=== PATIENT | female | born 2000 | race Caucasian/White ===

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

== ENCOUNTER 2018-09-28 07:59 | Day surgery (SDC) | payer OTHER ==
[~2018-09-28] VITALS: Ht 167.6 cm; Wt 83.1 kg
[~2018-09-28 07:59] MED LIST: ASMA1AER3 INH; CIPRODEX OTIC SUSP 7.5ML As Ordered ONE; PROAAER10 INH; VENTAER INH
[2018-09-28 08:31] LABS: URINE PREG TEST NEGATIVE (NEGATIVE)
[2018-09-28] MEDS ORDERED: FLUT44IN INH (08:47)
[2018-09-28] MEDS ORDERED: LR 1,000 ML IV ONE (09:00)
[2018-09-28] MEDS ORDERED: fentaNYL 100 MCG/2 ML INJECTION (J3010) As Ordered ONE (09:57)
[2018-09-28] MEDS ORDERED: PROPOFOL 200 MG/20 ML VIAL As Ordered ONE (09:57)
[2018-09-28] MEDS ORDERED: dexameTHASONE 4 MG/ML 1ML VIAL (J1100) As Ordered ONE (09:57)
[2018-09-28] MEDS ORDERED: MIDAZOLAM INJ 2 MG/2 ML VIAL (J2250) As Ordered ONE (09:57)
[2018-09-28] MEDS ORDERED: LIDOCAINE 2% INJ 100 MG/5 ML SDV (FOR ANES.) As Ordered ONE (09:57)
[2018-09-28] MEDS ORDERED: ONDANSETRON 4MG/2ML VIAL (J2405) As Ordered ONE (09:57)
[2018-09-28] MEDS ORDERED: IBUPROFEN 800 MG TAB As Ordered ONE (10:31)
[2018-09-28] MEDS ORDERED: ONDANSETRON 4MG/2ML VIAL (J2405) IV PRN (10:45)
[2018-09-28] MEDS ORDERED: fentaNYL 100 MCG/2 ML INJECTION (J3010) IV PRN (10:45)
[2018-09-28] MEDS ORDERED: IBUPROFEN 800 MG TAB PO PRN (10:45)
[2018-09-28] MEDS ORDERED: LR 1,000 ML IV SCH (10:45)
[2018-09-28 11:15] VITALS: BP 101/69
--- NOTE | 2018-09-28 11:55 | RO ---
DATE OF PROCEDURE: 09/28/2018 PREPROCEDURE DIAGNOSIS: Chronic otitis media with effusion. POSTPROCEDURE DIAGNOSIS: Chronic otitis media with effusion. PROCEDURE: Bilateral myringotomy. SURGEON: Dr. Carroll Florentino. REEL WORKER: ANESTHESIA: ESTIMATED BLOOD LOSS: INDICATION: This is a 18-year-old with a long history of eustachian tube dysfunction, chronic middle ear fluid requiring ventilation of the middle ear in the past. DESCRIPTION OF PROCEDURE: Satisfactory mask anesthesia administered, right ear examined and cleaned under the microscope. There is some atrophy noted anteriorly. There is definite retraction of the tympanic membrane. No neovascularization is peripheral to the sclerosis. An anterior superior myringotomy made. Serous fluid suctioned from the middle ear. A Bevel Bobbin tube was inserted carefully. It does not extend the myringotomy. Ciprodex drops were instilled. The left ear was examined and cleaned under microscope. A peripheral rim of tympanosclerosis noted with a larger area of atrophy superiorly and anteriorly. Anterior superior myringotomy made. Glue like fluid suctioned from the middle ear with care being taken not to extend the myringotomy. Ciprodex drops used to irrigate the middle ear and a Bevel Bobbin tube inserted carefully. the lip was retracted away from the face by assist. 1% Xylocaine with 1:100,000 epinephrine was injected to the area around this cyst. An elliptical incision was made in the mucosa lip just around the lesion. Using sharp dissection, the paddle of mucosa with overlying cyst was removed with the underlying mucous gland that created this. Hemostasis was achieved with bipolar cautery. Mucous flaps were created on each side of the incision for mobilization of the wound. The wound was then closed using interrupted #4-0 Chromic suture. He tolerated the procedure well and was sent to recovery in satisfactory condition and he will be seen back in the office in 1 week.
== END 2018-09-28 11:25 | disposition home or self-care (01) ==
LOC: M SDC 07:59
PROVIDERS: ATTEND Specialist
DX: H65.23 Chronic serous otitis media, bilateral (principal); J45.909 Unspecified asthma, uncomplicated; K21.9 Gastro-esophageal reflux disease without esophagitis; L30.9 Dermatitis, unspecified; R06.83 Snoring; Z72.0 Tobacco use
CPT/HCPCS: 69436; 84703; J1100; J2250; J2405; J3010

== ENCOUNTER 2019-04-07 06:07 | Day surgery (SDC) | payer OTHER ==
[~2019-04-07] VITALS: Ht 167.6 cm; Wt 82.6 kg
[~2019-04-07 06:07] MED LIST changes: +ALBU83IN INH; -CIPRODEX OTIC SUSP 7.5ML As Ordered ONE; +CLAR10CA3 PO; +FLUT44IN INH
[2019-04-07 06:42] LABS: URINE PREG TEST NEGATIVE (NEGATIVE)
[2019-04-07] MEDS ORDERED: propofoL 200 MG/20 ML VIAL As Ordered ONE (06:57)
[2019-04-07] MEDS ORDERED: dexameTHASONE 4 MG/ML 1ML VIAL (J1100) As Ordered ONE (06:58)
[2019-04-07] MEDS ORDERED: LIDOCAINE 2% INJ 100 MG/5 ML SDV (FOR ANES.) As Ordered ONE (06:58)
[2019-04-07] MEDS ORDERED: ONDANSETRON 4MG/2ML VIAL (J2405) As Ordered ONE (06:58)
[2019-04-07] MEDS ORDERED: CIPRODEX OTIC SUSP 7.5ML As Ordered ONE (06:59)
[2019-04-07] MEDS ORDERED: oxyCODONE 5MG TAB PO PRN (08:15)
[2019-04-07] MEDS ORDERED: fentaNYL 100 MCG/2 ML INJECTION (J3010) IV PRN (08:15)
[2019-04-07] MEDS ORDERED: ONDANSETRON 4MG/2ML VIAL (J2405) IV PRN (08:15)
[2019-04-07] MEDS ORDERED: LR 1,000 ML IV SCH (08:15)
[2019-04-07 08:40] VITALS: BP 113/70
--- NOTE | 2019-04-19 08:33 | RO ---
DATE OF PROCEDURE: 04/07/2019 PREPROCEDURE DIAGNOSIS: Left chronic secretory otitis media. POSTPROCEDURE DIAGNOSIS: Left chronic secretory otitis media. PROCEDURE: Left myringotomy with T tube. SURGEON: Dr. Carroll Florentino. ELECTRODE TURNER AND FINISHER: ANESTHESIA: General. INDICATION: This is a 19-year-old known to us for previous sets of ear tubes in the ear because of chronic otitis media with effusion, eustachian tube dysfunction. She presents again with a middle ear effusion and retraction of tympanic membrane. DESCRIPTION OF PROCEDURE: Satisfactory mask anesthesia administered. The left ear examined and cleaned under the microscope. Some atrophy of the drum was noted tympanosclerosis on peripheral drum. An anterior inferior myringotomy was made, serous fluid was suctioned. The eardrum was quite floppy and atrophic but I was able to place a T-tube in position and secure it. Ciprodex drops were instilled completing this. She tolerated the procedure well and was sent to the recovery room in satisfactory condition. DISPOSITION: She will be seen by us in the office one week.
== END 2019-04-07 08:46 | disposition home or self-care (01) ==
LOC: M SDC 06:07
PROVIDERS: ATTEND Specialist
DX: H65.22 Chronic serous otitis media, left ear (principal); K21.9 Gastro-esophageal reflux disease without esophagitis; J45.909 Unspecified asthma, uncomplicated; F17.210 Nicotine dependence, cigarettes, uncomplicated; Z79.51 Long term (current) use of inhaled steroids
CPT/HCPCS: 69436; 84703; J1100; J2405

== ENCOUNTER → 2021-11-27 | Outpatient (REF) | payer OTHER | LOC: M LAB REF 15:34 | PROVIDERS: ATTEND Physician Assistant Medical | DX: H66.91 Otitis media, unspecified, right ear (principal) ==

== ENCOUNTER → 2022-05-25 | Outpatient (CLI) | payer OTHER ==
[~2022-05-25] MED LIST changes: +ALBU2.5V10 INH; -ALBU83IN INH
== END ==
LOC: M LABSMTC 10:08
PROVIDERS: ATTEND Anesthesiology
DX: Z01.812 Encounter for preprocedural laboratory examination (principal); Z20.822 Contact with and (suspected) exposure to COVID-19

== ENCOUNTER 2022-05-29 06:54 | Day surgery (SDC) | payer OTHER ==
[~2022-05-29] VITALS: Ht 160 cm; Wt 79.9 kg
[~2022-05-29 06:54] MED LIST changes: +LABE100T6 PO; +VENL37TA PO
[2022-05-29] MEDS ORDERED: LR 1,000 ML IV SCH ×2 (08:00→11:30)
[2022-05-29] MEDS ORDERED: fentaNYL 100 MCG/2 ML INJECTION As Ordered ONE (08:02)
[2022-05-29] MEDS ORDERED: propofoL 200 MG/20 ML VIAL As Ordered ONE ×2 (08:02→11:24)
[2022-05-29] MEDS ORDERED: LIDOCAINE 2% 100MG/5ML SDV (FOR ANES.) As Ordered ONE (08:02)
[2022-05-29] MEDS ORDERED: dexameTHASONE 4 MG/ML 1ML VIAL (J1100 PER 1MG) As Ordered ONE (08:02)
[2022-05-29] MEDS ORDERED: KETOROLAC 60MG 2ML VIAL As Ordered ONE ×2 (08:02→12:57)
[2022-05-29] MEDS ORDERED: ONDANSETRON 4MG 2ML VIAL As Ordered ONE (08:02)
[2022-05-29] MEDS ORDERED: MIDAZOLAM INJ 2MG/2ML VIAL (J2250 PER 1MG) As Ordered ONE (08:02)
[2022-05-29] MEDS ORDERED: CIPRODEX OTIC SUSP 7.5ML As Ordered ONE (08:36)
[2022-05-29] MEDS ORDERED: EPINEPHrine 1MG/ML INJ 30ML MD-VIAL As Ordered ONE (08:37)
[2022-05-29] MEDS ORDERED: LIDOCAINE W/EPINEPHRINE 1% 20ML VIAL As Ordered ONE (08:37)
[2022-05-29] MEDS ORDERED: EPINEPHrine INJ 1 MG/ML 1ML AMP As Ordered ONE (08:37)
[2022-05-29] MEDS ORDERED: oxyCODONE 5MG TAB PO PRN (11:30)
[2022-05-29] MEDS ORDERED: ONDANSETRON 4MG 2ML VIAL IV PRN (11:30)
[2022-05-29] MEDS ORDERED: METOCLOPRAMIDE INJ 10MG/2ML VIAL (J2765 PER 1) IV PRN (11:30)
[2022-05-29] MEDS ORDERED: fentaNYL 100 MCG/2 ML INJECTION IV PRN (11:30)
[2022-05-29 12:05] VITALS: BP 136/85
== END 2022-05-29 12:22 | disposition home or self-care (01) ==
LOC: M SDC 06:54
PROVIDERS: ATTEND Otolaryngology
DX: H72.92 Unspecified perforation of tympanic membrane, left ear (principal); J45.909 Unspecified asthma, uncomplicated; Z79.51 Long term (current) use of inhaled steroids; F17.210 Nicotine dependence, cigarettes, uncomplicated; K21.9 Gastro-esophageal reflux disease without esophagitis; F41.9 Anxiety disorder, unspecified; F32.A Depression, unspecified; G47.00 Insomnia, unspecified; Z79.899 Other long term (current) drug therapy
CPT/HCPCS: 69610; 81025; J0171; J1100; J1885; J2250; J2405; J3010

== ENCOUNTER → 2024-08-11 | Outpatient (REF) ==
[~2024-08-11] MED LIST changes: -ASMA1AER3 INH; +MOME13HF5 INH
== END ==
LOC: M LAB REF 13:28
PROVIDERS: ATTEND Student in an Organized Health Care Education/Training Program
DX: Z01.89 Encounter for other specified special examinations (principal)